=== PATIENT | female | born 1970 | race Two or more races ===

== ENCOUNTER 2017-09-09 23:22 | Emergency (ER) | payer SELFPAY ==
[~2017-09-09] VITALS: Ht 167.6 cm; Wt 63.6 kg
[2017-09-09] MEDS ORDERED: SODIUM CHLORIDE 0.9% 1,000 ML IV ONE (23:47)
[2017-09-09] MEDS ORDERED: ONDANSETRON HCL 4MG/2ML VIAL IV STA (23:52)
[2017-09-10] MEDS ORDERED: MAGNESIUM/ALUMINUM HYDROXIDE/SIMETHICONE 30ML UDC PO ONE
[2017-09-10 00:29] LABS: BASOPHILS % 0.8 % (0.0-2.0); HEMATOCRIT. 38.2 % (36.0-48.0); HEMOGLOBIN. 12.8 g/dL (12.0-16.0); MEAN CORPUSCULAR VOLUME 92.6 fL (81.0-99.0); MEAN PLATELET VOLUME 8.5 fl (7.4-10.4); MONOCYTES % 6.6 % (2.0-8.0); NEUTROPHILS % 49.6 % (40.0-76.0); PLATELET 210 x1000/uL (130-400); RED BLOOD CELL COUNT 4.12 mill/uL (4.2-5.4); RED CELL DISTRIBUTION WIDTH 13.6 % (11.6-14.6)
[2017-09-10 00:34] LABS: HCG SCREEN NEGATIVE
[2017-09-10 00:35] LABS: INR 1.1; PROTHROMBIN TIME 11.6 sec (9.4-11.6)
[2017-09-10 00:44] LABS: CHLORIDE 107 mEq/L (98-107); ETHANOL BLOOD 240 mg/dL; TROPONIN I < 0.02 ng/mL (0.00-0.04)
[2017-09-10] MEDS ORDERED: POTASSIUM BICARB/CIT ACID 25 MEQ TABLET.EFF PO ONE (01:00)
[2017-09-10] MEDS ORDERED: SODIUM CHLORIDE 0.9% 1000ML BAG (SEPSIS BOLUS) IV ONE (01:00)
[2017-09-10] MEDS ORDERED: CEFTRIAXONE 1 G PREMIX 50 ML IV ONE (01:00)
[2017-09-10] MEDS ORDERED: AZITHROMYCIN 500 MG in DEXT 5% WATER 250 ML IV ONE (01:00)
[2017-09-10 04:19] VITALS: BP 118/59
== END 2017-09-10 04:16 | disposition left against medical advice (07) ==
LOC: ER 23:22 → EDBD 23:22 → ER 09-10 04:16
DX: T51.0X1A Toxic effect of ethanol, accidental (unintentional), initial encounter (principal); E87.6 Hypokalemia; E87.2 Acidosis; Y90.8 Blood alcohol level of 240 mg/100 ml or more; Y92.39 Other specified sports and athletic area as the place of occurrence of the external cause
CPT/HCPCS: 36415; 80053; 82962; 83605; 83690; 84484; 84703; 85025; 85610; 87040; 96361; 96365; 96367; 96375; 99291; G0482; J0456; J0696; J2405; J7030; Z7610; J7060